=== PATIENT | male | born 1995 | race Caucasian/White ===

== ENCOUNTER 2016-05-08 08:29 | Emergency (ER) | payer OTHER ==
[2016-05-08] MEDS ORDERED: Ondansetron ODT TAB* 4 MG PO ONE (09:20)
[2016-05-08] MEDS ORDERED: Al Hydrox/Mg Hydrox/Simet LIQ* 30 ML UDC PO ONE (09:21)
[2016-05-08] MEDS ORDERED: Lidocaine 2% VISCOUS* 15 ML UDC PO ONE (09:21)
--- NOTE | 2016-05-08 09:25 | ED ---
GI/ HPI - History of Current Complaint Chief Complaint: EDChestPainROMI Time Seen by Provider: 05/08/16 08:48 Stated Complaint: VOMITING/CHEST HURTS Hx Obtained From: Patient Onset/Duration: Started Hours Ago - started yesteray while at work qith sudden onset nausea. vomited few min later and left work. has had burning and sharp pain mid chest after every vomiting episode Timing: Intermittent Severity: Moderate Current Severity: Moderate Pain Intensity: 6 Location of Pain: Epigastric Pain Characteristics: Sharp, Burning Pain Radiates to: Chest - mid chest Associated Signs and Symptoms: Positive: Nausea, Vomiting. Negative: Dizziness , Weakness, Diarrhea, Fever, Dysuria, Chills, Lightheadedness, Abdominal Pain Aggravating Factor(s): Movement, Food Alleviating Factor(s): Nothing - Risk Factors GI Bleed Risk Factor(s): Negative - Additional Pertinent History Have you ever had this problem before: No - Allergy/Home Medications Allergies/Adverse Reactions: Allergies Allergy/AdvReac Type Severity Reaction Status Date / Time No Known Allergies Allergy Verified 05/08/16 08:32 PMH/Surg Hx/FS Hx/Imm Hx Previously Healthy: Yes Endocrine/Hematology History: Denies: Hx Anticoagulant Therapy, Hx Blood Disorders Cardiovascular History: Denies: Hx Congenital Heart Disease, Hx Coronary Artery Disease, Hx Hypertension Respiratory History: Denies: Hx Asthma GI History: Denies: Other GI Disorders Psychiatric History: Denies: Hx Anxiety, Hx Depression Infectious Disease History: No Infectious Disease History: Denies: Traveled Outside the [place] in Last 30 Days - Family History Known Family History: Positive: None - Social History Occupation: Employed Full-time - [employer] Lives: With Family Alcohol Use: None Substance Use Type: Reports: None Smoking Status (MU): Never Smoked Tobacco Review of Systems Constitutional: Negative Negative: Fever, Chills, Fatigue Eyes: Negative ENT: Negative Negative: Sore Throat, Ear Ache, Nasal Discharge Positive: Chest Pain - sharp/burning mid chest/epigastric Respiratory: Negative Positive: Vomiting, Nausea. Negative: Diarrhea Skin: Negative Neurological: Negative Negative: Headache Psychological: Normal All Other Systems Reviewed And Are Negative: Yes Physical Exam Triage Information Reviewed: Yes Vital Signs On Initial Exam: Initial Vitals Temp Pulse Resp BP Pulse Ox 98.4 F 98 16 140/74 100 05/08/16 08:32 05/08/16 08:32 05/08/16 08:32 05/08/16 08:32 05/08/16 08:32 Vital Signs Reviewed: Yes Appearance: Positive: Well-Appearing, No Pain Distress, Well-Nourished Skin: Positive: Warm, Skin Color Reflects Adequate Perfusion, Dry ENT: Positive: Normal ENT inspection Neck: Positive: Supple, Nontender, No Lymphadenopathy Respiratory/Lung Sounds: Positive: Clear to Auscultation Cardiovascular: Positive: Normal, RRR, Pulses are Symmetrical in both Upper and Lower Extremities Abdomen Description: Positive: Nontender, No Organomegaly, Soft. Negative: Distended, Guarding Bowel Sounds: Positive: Present Neurological: Positive: Normal, Sensory/Motor Intact, Alert, Oriented to Person Place, Time Psychiatric: Positive: Normal - [place] Coma Scale Coma Scale Total: 15 Diagnostics - Vital Signs Vital Signs Temp Pulse Resp BP Pulse Ox 05/08/16 08:32 98.4 F 98 16 140/74 100 - Laboratory Lab Statement: Any lab studies that have been ordered have been reviewed, and results considered in the medical decision making process. Re-Evaluation - Re-Evaluation First Eval Re-Evaluation Time: 10:00 - nausea has resolved. states less burning in chest since meds Change: Improved Second Eval Re-Evaluation Time: 10:30 - matteo gingerale without inc in nausea or chest/ epigastric pain Change: Improved GIGU Course/Dx - Diagnoses Differential Diagnoses - Male: Dehydration, Esophagitis/Gastritis, Gastritis - influenza, Gastroenteritis (Viral), Vomiting Provider Diagnoses: Esophagitis, Viral illness Discharge - Discharge Plan Condition: Improved Disposition: HOME Prescriptions: Ondansetron ODT TAB* [Zofran 4 MG Odt TAB*] 4 mg PO Q6H PRN #12 tab.odt PRN Reason: Nausea Patient Education Materials: Esophagitis (ED), Acute Nausea and Vomiting (ED) Forms: *Work Release Referrals: Yessica Benitez NP [Nurse Practitioner] - 2 Days (if no better) Additional Instructions: stay on clear fluids today and then advance to bland diet tomorrow use anti-nausea medication as prescribed if needed rest return here if worsening at anytime
[2016-05-08 10:44] VITALS: BP 135/71
== END 2016-05-08 10:43 | disposition home or self-care (01) ==
LOC: ED 08:29
DX: K20.9 Esophagitis, unspecified (principal); R11.2 Nausea with vomiting, unspecified; R07.9 Chest pain, unspecified; B34.9 Viral infection, unspecified
CPT/HCPCS: 93005; 99282; A9270-GY